=== PATIENT | male | born 1945 | race Caucasian/White ===

== ENCOUNTER 2019-03-07 12:56 | Inpatient (IN) | payer MEDICARE, OTHER ==
[~2019-03-07] VITALS: Ht 175.3 cm; Wt 67.8 kg
[~2019-03-07 12:56] MED LIST: CEFAZOLIN 1,000 MG ONE; FENTANYL PF 250 MCG/5ML ONE; GLYCOPYRROLATE 0.2MG/1ML, 5ML ONE; NEOSTIGMINE 1 MG/ML, 10ML ONE; PROPOFOL 10 MG/ML, 20ML ONE; ROCURONIUM 10MG/ML,5ML ONE
[2019-03-07] MEDS ORDERED: BUPIVACAINE/PF 0.5% ONE (13:15)
[2019-03-07] MEDS ORDERED: EPINEPHRINE 1 MG/ML, 1ML ONE (13:15)
[2019-03-07] MEDS ORDERED: LACTATED RINGERS 1,000 ML IV SCH (13:49)
[2019-03-07 13:53] VITALS: BP 193/98
[2019-03-07] MEDS ORDERED: GABAPENTIN 300 MG CAPSULE PO ONE (14:00)
[2019-03-07] MEDS ORDERED: ACETAMINOPHEN 500 MG TABLET PO ONE (14:00)
[2019-03-07] MEDS ORDERED: BUDE9TAB2 PO (14:06)
[2019-03-07] MEDS ORDERED: [UNRECOGNIZED DRUG - OTHER] PO (14:06)
[2019-03-07] MEDS ORDERED: CARV6.252 PO (14:06)
[2019-03-07] MEDS ORDERED: LOSA1TAB25 PO (14:06)
[2019-03-07] MEDS ORDERED: TAMS-11 PO (14:06)
[2019-03-07] MEDS ORDERED: PRAV20TA2 PO (14:06)
[2019-03-07] MEDS ORDERED: FENTANYL PF 100 MCG/2ML IV PRN (15:00)
[2019-03-07] MEDS ORDERED: ONDANSETRON 2MG/ML, 2ML IV PRN (15:00)
[2019-03-07] MEDS ORDERED: hydrALAzine 20 MG/ML, 1ML IV PRN (15:00)
[2019-03-07] MEDS ORDERED: MORPHINE SULFATE 4 MG/ML, 1ML IVPush PRN (15:00)
[2019-03-07] MEDS ORDERED: LABETALOL 5MG/ML, 20ML IV PRN (15:00)
[2019-03-07] MEDS ORDERED: MEPERIDINE/PF 25MG/ML,1ML IVPush PRN (15:00)
[2019-03-07] MEDS ORDERED: HYDROmorphone 2 MG/ML, 1ML IVPush PRN (15:00)
[2019-03-07] MEDS ORDERED: OXYcodone 5 MG/5 ML ORAL.SOL UDC PO PRN (15:00)
[2019-03-07] MEDS ORDERED: SUGAMMADEX 200 MG/2 ML IVPush ONE (15:50)
[2019-03-07] MEDS ORDERED: D5%-0.45NACL+KCL 20MEQ 1,000 ML IV SCH (15:55)
[2019-03-07] MEDS ORDERED: FENTANYL PF 100 MCG/2ML IVPush PRN (16:00)
[2019-03-07] MEDS ORDERED: CALCIUM CARBONATE 500 MG TAB.CHEW PO PRN (16:00)
[2019-03-07] MEDS ORDERED: DIPHENHYDRAMINE 50 MG/ML, 1ML IVPush PRN (16:00)
[2019-03-07] MEDS ORDERED: BUDESONIDE 9 MG PO PRN ×2 (16:00→19:48)
[2019-03-07] MEDS: IBUPROFEN 800 MG TABLET PO SCH ×2 (16:00→21:05)
[2019-03-07] MEDS ORDERED: OXYcodone IR 5MG TABLET PO PRN (16:00)
[2019-03-07] MEDS ORDERED: ONDANSETRON 2MG/ML, 2ML IVPush PRN (16:00)
[2019-03-07] MEDS ORDERED: TEMPLATE NON-FORMULARY MED. (Losartan/Hydrochlorothiazide** (Losartan-Hctz 100-12.5 Mg Tab PO SCH (16:00)
[2019-03-07] MEDS ORDERED: SCOPOLAMINE PATCH, 1.5MG PATCH.TD72 TD PRN (16:00)
[2019-03-07] MEDS ORDERED: FENTANYL PF 100 MCG/2ML ONE (16:06)
[2019-03-07] MEDS ORDERED: OXYcodone 5 MG/5 ML ORAL.SOL UDC ONE (16:07)
[2019-03-07] MEDS ORDERED: BUDESONIDE MC SCH (17:30)
[2019-03-07 19:21] VITALS: BP 159/80
[2019-03-07] MEDS: SODIUM CHLORIDE FLUSH 10ML SYR IVF SCH (21:00)
[2019-03-07] MEDS ORDERED: PRAVASTATIN 20 MG TABLET PO SCH (21:00)
[2019-03-07 23:57] VITALS: BP 165/91
[2019-03-08 03:40] VITALS: BP 167/76
[2019-03-08 07:33] VITALS: BP 180/87
[2019-03-08] MEDS: SODIUM CHLORIDE FLUSH 10ML SYR IVF SCH (07:45)
[2019-03-08] MEDS ORDERED: LOSARTAN 50MG TABLET PO SCH (09:00)
[2019-03-08] MEDS ORDERED: PSYLLIUM PACKET PO SCH (09:00)
[2019-03-08] MEDS ORDERED: HYDROCHLOROTHIAZIDE 12.5 MG CAPSULE PO SCH (09:00)
[2019-03-08] MEDS ORDERED: TAMSULOSIN 0.4 MG CAP.ER.24H PO SCH (09:00)
[2019-03-08] MEDS ORDERED: CARVEDILOL 6.25 MG TABLET PO SCH (09:00)
[2019-03-08 09:05] VITALS: BP 160/87
[2019-03-08] MEDS: IBUPROFEN 800 MG TABLET PO SCH (09:06)
[2019-03-08 10:40] VITALS: BP 152/74
[2019-03-08] MEDS ORDERED: OXYC5TAB3 PO (11:01)
== END 2019-03-08 11:31 | disposition home or self-care (01) | DRG 352 ==
LOC: OUT 12:56 → ORIP 16:35 → 4NE 17:05 → DCLOUNGE 03-08 11:15
PROVIDERS: ADMIT Surgery; ATTEND Surgery
PROC: 8E0W4CZ Robotic Assisted Procedure of Trunk Region, Percutaneous Endoscopic Approach (ICD-10-PCS; 2019-03-07)
PROC: 0YU54JZ Supplement Right Inguinal Region with Synthetic Substitute, Percutaneous Endoscopic Approach (ICD-10-PCS; principal; 2019-03-07 15:00)
DX: K40.90 Unilateral inguinal hernia, without obstruction or gangrene, not specified as recurrent (principal); I10 Essential (primary) hypertension; E78.5 Hyperlipidemia, unspecified; N40.0 Benign prostatic hyperplasia without lower urinary tract symptoms; Z82.49 Family history of ischemic heart disease and other diseases of the circulatory system
CPT/HCPCS: G0378; J0171; J0690; J2704; J2710; J3010; C1781; J3480; J7120

== ENCOUNTER 2019-03-11 10:39 | Inpatient (IN) | payer MEDICARE, OTHER ==
[~2019-03-11] VITALS: Ht 175.3 cm; Wt 73.9 kg
[~2019-03-11 10:39] MED LIST changes: +BUDE9TAB2 PO; +CARV6.252 PO; -CEFAZOLIN 1,000 MG ONE; -FENTANYL PF 250 MCG/5ML ONE; -GLYCOPYRROLATE 0.2MG/1ML, 5ML ONE; +LOSA1TAB25 PO; -NEOSTIGMINE 1 MG/ML, 10ML ONE; +OXYC5TAB3 PO; +PRAV20TA2 PO; -PROPOFOL 10 MG/ML, 20ML ONE; -ROCURONIUM 10MG/ML,5ML ONE; +TAMS-11 PO; +[UNRECOGNIZED DRUG - OTHER] PO
--- NOTE | 2019-03-11 10:59 | NUR ---
PT HAS CO OF NOT RECOVERING FROM INGUINAL RIGHT SIDE HERNIA SURGERY, LAPROSCOPIC. PT STATES HE HAS HAD HICCUPS SINCE SURGERY AND VOMITTING "DARK BLACK GRANULES" AT NIGHT. PT ALSO UNABLE TO KEEP FOOD DOWN AND HAS GOTTEN WEAKER. PT CONSULTED SURGEON ABOUT CONCERNS AND WAS TOLD TO COME TO ED. PT NOT IN DISTRESS. LAST BM WAS WEDNESDAY. DENIES PASSING GAS.
[2019-03-11] MEDS ORDERED: SODIUM CHLORIDE FLUSH 10ML SYR IVF ONE (11:30)
--- NOTE | 2019-03-11 11:53 | NUR ---
IV ESTABLISHED. LABS DRAWN. PT TO IMAGING. PT ATTEMPTED TO VOID. UNABLE TO PRODUCE UA.
[2019-03-11 12:05] LABS: BASOPHILS # (AUTO) 0.01 x10^3/uL (0-0.1); BASOPHILS % (AUTO) 0 % (0-1); EOSINOPHILS # (AUTO) 0.01 x10^3/uL (0-0.4); EOSINOPHILS % (AUTO) 0 % (1-7); LYMPHOCYTES # (AUTO) 0.83 x10^3/uL (1-3.4); LYMPHOCYTES % (AUTO) 7 % (22-44); MD NO; MEAN CORPUSCULAR HEMOGLOBIN 34.9 pg (27.5-34.5); MEAN CORPUSCULAR HGB CONC 34.1 g/dL (33.2-36.2); MEAN CORPUSCULAR VOLUME 102.6 fL (81-97); MEAN PLATELET VOLUME 9.1 fL (7.4-10.4); MONOCYTES % (AUTO) 7 % (2-9); NEUTROPHILS # (AUTO) 10.66 x10^3/uL (1.8-6.8); NEUTROPHILS % (AUTO) 87 % (42-75); PLATELET COUNT 141 x10^3/uL (130-400); RED BLOOD COUNT 3.89 x10^6/uL (4.38-5.82); RED CELL DISTRIBUTION WIDTH 14.3 % (9.4-14.8)
[2019-03-11] MEDS ORDERED: SODIUM CHLORIDE 0.9% 1,000 ML IV ONE (12:07)
[2019-03-11 12:08] LABS: INTERNATIONAL NORMALIZED RATIO 0.93 (0.93-1.1); PROTHROMBIN TIME 9.8 Seconds (9.6-11.5)
[2019-03-11] MEDS ORDERED: PANTOPRAZOLE 40 MG IV ONE (12:10)
[2019-03-11 12:16] LABS: ALANINE AMINOTRANSFERASE 22 U/L (12-78); ALBUMIN 3.5 g/dL (3.4-5.0); ANION GAP 10 mmol/L (5-15); CALCIUM 11.1 mg/dL (8.5-10.1); CHLORIDE 84 mmol/L (98-107); CREATININE 1.96 mg/dL (0.7-1.3)
[2019-03-11 12:18] LABS: ALKALINE PHOSPHATASE 57 U/L (45-117); BILIRUBIN,TOTAL 1.6 mg/dL (0.2-1.0); TOTAL PROTEIN 6.3 g/dL (6.4-8.2)
[2019-03-11] MEDS ORDERED: PANTOPRAZOLE 40 MG IV IVPush ONE (12:30)
--- NOTE | 2019-03-11 12:37 | NUR ---
MD AT BEDSIDE DISCUSSING POC. PT AGREES. NO FURTHER QUESTIONS. VS STABLE.
[2019-03-11] MEDS ORDERED: PANTOPRAZOLE 80 MG in SODIUM CHLORIDE 0.9% 100 ML IV SCH (13:00)
[2019-03-11] MEDS ORDERED: SODIUM CHLORIDE FLUSH 10ML SYR IVF PRN (13:00)
[2019-03-11] MEDS ORDERED: POTASSIUM CHLORIDE 40 MEQ in SODIUM CHLORIDE 0.9% 500 ML IV ONE ×2 (13:30→19:00)
--- NOTE | 2019-03-11 13:35 | NUR ---
REPORT TO ADENIKE
[2019-03-11] MEDS ORDERED: SODIUM CHLORIDE 0.9% 1,000ML IVBOLUS ONE (14:00)
[2019-03-11] MEDS ORDERED: morphine SULFATE 10 MG/ML, 1ML IVPush PRN (14:30)
[2019-03-11] MEDS ORDERED: ONDANSETRON 2MG/ML, 2ML IVPush PRN (14:30)
[2019-03-11] MEDS ORDERED: ENALAPRILAT 1.25 MG/ML, 2ML IVPush PRN (14:30)
[2019-03-11] MEDS ORDERED: LABETALOL 5MG/ML, 20ML IVPush PRN (14:30)
[2019-03-11] MEDS ORDERED: hydrALAzine 20 MG/ML, 1ML IVPush PRN (14:30)
[2019-03-11] MEDS: NS + 40MEQ KCL 1,000 ML IV SCH ×2 (15:59→23:00)
[2019-03-11 16:11] LABS: ANION GAP 9 mmol/L (5-15); CALCIUM 9.7 mg/dL (8.5-10.1); CHLORIDE 90 mmol/L (98-107); CREATININE 1.45 mg/dL (0.7-1.3)
[2019-03-11] MEDS ORDERED: METOCLOPRAMIDE 5 MG/ML, 2ML IVPush ONE (16:30)
[2019-03-11 16:33] LABS: BASOPHILS # (AUTO) 0.01 x10^3/uL (0-0.1); BASOPHILS % (AUTO) 0 % (0-1); EOSINOPHILS % (AUTO) 1 % (1-7); LYMPHOCYTES # (AUTO) 0.68 x10^3/uL (1-3.4); LYMPHOCYTES % (AUTO) 8 % (22-44); MD SCAN; MEAN CORPUSCULAR HEMOGLOBIN 34.9 pg (27.5-34.5); MEAN CORPUSCULAR HGB CONC 33.8 g/dL (33.2-36.2); MEAN CORPUSCULAR VOLUME 103.2 fL (81-97); MEAN PLATELET VOLUME 8.8 fL (7.4-10.4); MONOCYTES # (AUTO) 0.43 x10^3/uL (0.2-0.8); MONOCYTES % (AUTO) 5 % (2-9); NEUTROPHILS # (AUTO) 6.94 x10^3/uL (1.8-6.8); NEUTROPHILS % (AUTO) 85 % (42-75); PLATELET COUNT 123 x10^3/uL (130-400); RED BLOOD COUNT 3.62 x10^6/uL (4.38-5.82); RED CELL DISTRIBUTION WIDTH 14.6 % (9.4-14.8)
[2019-03-11 20:33] VITALS: BP 122/76
[2019-03-11] MEDS: PANTOPRAZOLE 80 MG in SODIUM CHLORIDE 0.9% 100 ML IV SCH (23:14)
[2019-03-12 01:31] LABS: MICROSCOPIC NOT IND
[2019-03-12 01:48] LABS: CULTURE INDICATED? NO
[2019-03-12 02:38] VITALS: BP 104/69
[2019-03-12] MEDS: NS + 40MEQ KCL 1,000 ML IV SCH ×3 (04:07→23:27)
[2019-03-12 05:30] LABS: BASOPHILS # (AUTO) 0.02 x10^3/uL (0-0.1); BASOPHILS % (AUTO) 0 % (0-1); EOSINOPHILS # (AUTO) 0.17 x10^3/uL (0-0.4); EOSINOPHILS % (AUTO) 3 % (1-7); LYMPHOCYTES # (AUTO) 0.61 x10^3/uL (1-3.4); LYMPHOCYTES % (AUTO) 11 % (22-44); MD NO; MEAN CORPUSCULAR HEMOGLOBIN 35.3 pg (27.5-34.5); MEAN CORPUSCULAR HGB CONC 34.4 g/dL (33.2-36.2); MEAN CORPUSCULAR VOLUME 102.7 fL (81-97); MEAN PLATELET VOLUME 9.3 fL (7.4-10.4); MONOCYTES # (AUTO) 0.44 x10^3/uL (0.2-0.8); MONOCYTES % (AUTO) 8 % (2-9); NEUTROPHILS # (AUTO) 4.35 x10^3/uL (1.8-6.8); NEUTROPHILS % (AUTO) 78 % (42-75); PLATELET COUNT 103 x10^3/uL (130-400); RED CELL DISTRIBUTION WIDTH 14.7 % (9.4-14.8)
[2019-03-12 05:38] LABS: ANION GAP 7 mmol/L (5-15); CALCIUM 8.9 mg/dL (8.5-10.1); CHLORIDE 101 mmol/L (98-107); CREATININE 0.91 mg/dL (0.7-1.3)
[2019-03-12 07:10] VITALS: BP 132/75
[2019-03-12] MEDS: TAMSULOSIN 0.4 MG CAP.ER.24H PO SCH (09:00)
[2019-03-12] MEDS: PANTOPRAZOLE 80 MG in SODIUM CHLORIDE 0.9% 100 ML IV SCH ×2 (10:08→23:27)
[2019-03-12] MEDS ORDERED: PANTOPRAZOLE 80 MG in SODIUM CHLORIDE 0.9% 100 ML IV SCH (13:00)
[2019-03-12 13:28] VITALS: BP 137/78
[2019-03-12 20:34] VITALS: BP 149/76
[2019-03-12] MEDS ORDERED: OMNIPAQUE 350 MG/ML, 150 ML BOTTLE ONE (22:25)
[2019-03-13 01:34] VITALS: BP 159/84
[2019-03-13 07:16] VITALS: BP 163/83
[2019-03-13] MEDS: TAMSULOSIN 0.4 MG CAP.ER.24H PO SCH (09:00)
[2019-03-13 09:02] LABS: BASOPHILS # (AUTO) 0.03 x10^3/uL (0-0.1); BASOPHILS % (AUTO) 0 % (0-1); EOSINOPHILS # (AUTO) 0.01 x10^3/uL (0-0.4); EOSINOPHILS % (AUTO) 0 % (1-7); LYMPHOCYTES # (AUTO) 0.34 x10^3/uL (1-3.4); LYMPHOCYTES % (AUTO) 5 % (22-44); MD NO; MEAN CORPUSCULAR HEMOGLOBIN 34.4 pg (27.5-34.5); MEAN CORPUSCULAR HGB CONC 34.1 g/dL (33.2-36.2); MEAN CORPUSCULAR VOLUME 100.9 fL (81-97); MEAN PLATELET VOLUME 8.3 fL (7.4-10.4); MONOCYTES # (AUTO) 0.39 x10^3/uL (0.2-0.8); MONOCYTES % (AUTO) 5 % (2-9); NEUTROPHILS # (AUTO) 6.67 x10^3/uL (1.8-6.8); NEUTROPHILS % (AUTO) 90 % (42-75); PLATELET COUNT 127 x10^3/uL (130-400); RED BLOOD COUNT 3.32 x10^6/uL (4.38-5.82); RED CELL DISTRIBUTION WIDTH 14.4 % (9.4-14.8)
[2019-03-13 09:10] LABS: ALANINE AMINOTRANSFERASE 18 U/L (12-78); ANION GAP 10 mmol/L (5-15); CALCIUM 8.9 mg/dL (8.5-10.1); CHLORIDE 113 mmol/L (98-107)
[2019-03-13 09:13] LABS: ALKALINE PHOSPHATASE 50 U/L (45-117); BILIRUBIN,TOTAL 1.2 mg/dL (0.2-1.0); TOTAL PROTEIN 5.3 g/dL (6.4-8.2)
[2019-03-13] MEDS: NS + 40MEQ KCL 1,000 ML IV SCH (11:22)
[2019-03-13] MEDS: PANTOPRAZOLE 80 MG in SODIUM CHLORIDE 0.9% 100 ML IV SCH ×2 (11:22→21:43)
[2019-03-13 13:06] VITALS: BP 144/78
[2019-03-13 19:30] VITALS: BP 129/83
[2019-03-14] MEDS: NS + 40MEQ KCL 1,000 ML IV SCH ×2 (00:30→14:23)
[2019-03-14 01:22] VITALS: BP 145/81
[2019-03-14 07:22] VITALS: BP 145/87
[2019-03-14] MEDS: TAMSULOSIN 0.4 MG CAP.ER.24H PO SCH (08:04)
[2019-03-14] MEDS: PANTOPRAZOLE 80 MG in SODIUM CHLORIDE 0.9% 100 ML IV SCH ×2 (09:17→18:35)
[2019-03-14 13:34] VITALS: BP 165/87
[2019-03-14 18:42] VITALS: BP 157/82
[2019-03-15] MEDS: NS + 40MEQ KCL 1,000 ML IV SCH ×2 (04:01→14:38)
[2019-03-15] MEDS: PANTOPRAZOLE 80 MG in SODIUM CHLORIDE 0.9% 100 ML IV SCH ×2 (04:01→14:38)
[2019-03-15 04:24] VITALS: BP 159/85
[2019-03-15 07:14] VITALS: BP 165/88
[2019-03-15] MEDS: TAMSULOSIN 0.4 MG CAP.ER.24H PO SCH (08:36)
[2019-03-15 13:16] VITALS: BP 165/92
[2019-03-15 20:27] VITALS: BP 156/90
[2019-03-15] MEDS: CALCIUM CARBONATE 500 MG TAB.CHEW PO PRN (20:50)
[2019-03-16] MEDS: CALCIUM CARBONATE 500 MG TAB.CHEW PO PRN ×2 (00:25→02:27)
[2019-03-16] MEDS: PANTOPRAZOLE 80 MG in SODIUM CHLORIDE 0.9% 100 ML IV SCH ×3 (00:46→21:15)
[2019-03-16 00:54] VITALS: BP 162/85
[2019-03-16] MEDS: NS + 40MEQ KCL 1,000 ML IV SCH ×2 (03:59→19:07)
[2019-03-16 08:25] VITALS: BP 148/83
[2019-03-16] MEDS: TAMSULOSIN 0.4 MG CAP.ER.24H PO SCH (08:57)
[2019-03-16 13:01] VITALS: BP 149/89
[2019-03-16] MEDS ORDERED: FENTANYL PF 250 MCG/5ML ONE (14:29)
[2019-03-16] MEDS ORDERED: MIDAZOLAM 1 MG/ML, 2ML ONE (14:29)
[2019-03-16] MEDS ORDERED: ROCURONIUM 10MG/ML,5ML ONE (14:37)
[2019-03-16] MEDS ORDERED: PROPOFOL 10 MG/ML, 20ML ONE (14:37)
[2019-03-16] MEDS ORDERED: SUCCINYLCHOLINE 20 MG/ML, 10ML ONE (14:37)
[2019-03-16] MEDS ORDERED: DEXAMETHASONE 4 MG/ML, 1ML ONE ×2 (14:37)
[2019-03-16] MEDS ORDERED: ALBUTEROL SULFATE 200 PUFFS/8.5 GR INH ONE (14:39)
[2019-03-16] MEDS ORDERED: CEFOTETAN 2 GM ONE (14:39)
[2019-03-16] MEDS ORDERED: PIPERACILLIN/TAZO/PMX 3.375GM 50 ML ONE (14:58)
[2019-03-16] MEDS ORDERED: ONDANSETRON 2MG/ML, 2ML ONE (15:29)
[2019-03-16] MEDS ORDERED: SUGAMMADEX 200 MG/2 ML IVPush ONE (15:29)
[2019-03-16] MEDS ORDERED: ALBUTEROL SULFATE 2.5 MG/3 ML NPPB PRN (16:00)
[2019-03-16] MEDS ORDERED: HYDROmorphone 2 MG/ML, 1ML IVPush PRN (16:00)
[2019-03-16] MEDS ORDERED: hydrALAzine 20 MG/ML, 1ML IV PRN (16:00)
[2019-03-16] MEDS ORDERED: LABETALOL 5MG/ML, 20ML IV PRN (16:00)
[2019-03-16] MEDS ORDERED: MEPERIDINE/PF 25MG/ML,1ML IVPush PRN (16:00)
[2019-03-16] MEDS ORDERED: PROMETHAZINE 12.5 MG SUPP PR PRN (16:00)
[2019-03-16] MEDS ORDERED: ACETAMINOPHEN 325 MG TABLET PO PRN (16:00)
[2019-03-16] MEDS ORDERED: ONDANSETRON 2MG/ML, 2ML IV PRN (16:00)
[2019-03-16] MEDS ORDERED: OXYcodone 5 MG/5 ML ORAL.SOL UDC PO PRN (16:00)
[2019-03-16] MEDS ORDERED: EPHEDRINE 50 MG/ML, 1ML IVPush PRN (16:00)
[2019-03-16] MEDS ORDERED: PROMETHAZINE 25 MG/ML, 1ML IV PRN (16:00)
[2019-03-16] MEDS ORDERED: HALOPERIDOL 5 MG/ML IV PRN (16:00)
[2019-03-16] MEDS ORDERED: ONDANSETRON ODT 8 MG PO PRN (16:00)
[2019-03-16] MEDS ORDERED: DIAZEPAM 5 MG/ML, 2ML IVPush PRN (16:00)
[2019-03-16] MEDS ORDERED: MIDAZOLAM 1 MG/ML, 2ML IV PRN (16:00)
[2019-03-16] MEDS ORDERED: FENTANYL PF 100 MCG/2ML ONE (17:02)
[2019-03-16] MEDS: FENTANYL PF 100 MCG/2ML IV PRN ×2 (17:10→17:21)
[2019-03-16] MEDS: ALBUTEROL/IPRATROPIUM 2.5MG/0.5MG, 3 ML NPPB SCH ×2 (19:00→23:00)
[2019-03-16] MEDS: PIPERACILLIN/TAZO/PMX 3.375GM 50 ML IV SCH (19:07)
[2019-03-16 20:00] VITALS: BP 98/76
[2019-03-17] MEDS: PIPERACILLIN/TAZO/PMX 3.375GM 50 ML IV SCH ×4 (00:13→17:45)
[2019-03-17] MEDS: ALBUTEROL/IPRATROPIUM 2.5MG/0.5MG, 3 ML NPPB SCH ×2 (03:03→07:00)
[2019-03-17 04:00] VITALS: BP 102/62
[2019-03-17 05:18] LABS: MEAN CORPUSCULAR HGB CONC 34.2 g/dL (33.2-36.2); MEAN CORPUSCULAR VOLUME 102.3 fL (81-97); MEAN PLATELET VOLUME 8.4 fL (7.4-10.4); PLATELET COUNT 136 x10^3/uL (130-400); RED BLOOD COUNT 3.09 x10^6/uL (4.38-5.82); RED CELL DISTRIBUTION WIDTH 14.2 % (9.4-14.8)
[2019-03-17 05:22] LABS: ALANINE AMINOTRANSFERASE 20 U/L (12-78); ALBUMIN 2.1 g/dL (3.4-5.0); ANION GAP 9 mmol/L (5-15); CALCIUM 7.7 mg/dL (8.5-10.1); CHLORIDE 111 mmol/L (98-107); CREATININE 1.22 mg/dL (0.7-1.3)
[2019-03-17 05:25] LABS: ALKALINE PHOSPHATASE 35 U/L (45-117); TOTAL PROTEIN 4.5 g/dL (6.4-8.2)
[2019-03-17 05:56] LABS: MD YES
[2019-03-17 05:57] LABS: BAND#(MANUAL) 7.32 x10^3/uL; BANDS%(MANUAL) 60 % (0-7); LYMPH#(MANUAL) 0.12 x10^3/uL (1-3.4); LYMPHS% (MANUAL) 1 % (22-44); METAMYELOCYTES# (MANUAL) 0.37 x10^3/uL (0-0); METAMYELOCYTES% (MANUAL) 3 % (0-1); MONOS#(MANUAL) 0.37 x10^3/uL (0.3-2.7); MONOS% (MANUAL) 3 % (2-9); SEG#(MANUAL) 4.03 x10^3/uL (1.8-6.8); SEGS% (MANUAL) 33 % (42-75); TOXIC GRAN 1+
[2019-03-17 05:58] LABS: <PLATELET ESTIMATE> ADEQUATE; ANISOCYTOSIS 1+; PMNS WITH VACUOLES 1+
[2019-03-17 05:59] LABS: <PLT MORPHOLOGY> NORMAL PLT MORPH
[2019-03-17] MEDS: PANTOPRAZOLE 80 MG in SODIUM CHLORIDE 0.9% 100 ML IV SCH ×2 (06:10→16:36)
[2019-03-17] MEDS ORDERED: SODIUM CHLORIDE 0.9% 1,000 ML IV SCH (10:00)
[2019-03-17] MEDS: TAMSULOSIN 0.4 MG CAP.ER.24H PO SCH (10:55)
[2019-03-17] MEDS: SODIUM CHLORIDE 0.9% 1,000 ML IV SCH ×2 (10:56→21:06)
[2019-03-17 16:29] VITALS: BP 103/62
[2019-03-17 19:19] VITALS: BP 91/61
[2019-03-18 00:08] VITALS: BP 103/63
[2019-03-18] MEDS: PIPERACILLIN/TAZO/PMX 3.375GM 50 ML IV SCH ×4 (00:32→18:05)
[2019-03-18] MEDS: PANTOPRAZOLE 80 MG in SODIUM CHLORIDE 0.9% 100 ML IV SCH (03:10)
[2019-03-18 04:03] VITALS: BP 112/69
[2019-03-18 05:36] LABS: BASOPHILS % (AUTO) 0 % (0-1); EOSINOPHILS # (AUTO) 0.06 x10^3/uL (0-0.4); EOSINOPHILS % (AUTO) 1 % (1-7); LYMPHOCYTES # (AUTO) 0.39 x10^3/uL (1-3.4); LYMPHOCYTES % (AUTO) 4 % (22-44); MD NO; MEAN CORPUSCULAR HEMOGLOBIN 35.1 pg (27.5-34.5); MEAN PLATELET VOLUME 8.6 fL (7.4-10.4); MONOCYTES # (AUTO) 0.18 x10^3/uL (0.2-0.8); MONOCYTES % (AUTO) 2 % (2-9); NEUTROPHILS # (AUTO) 9.45 x10^3/uL (1.8-6.8); NEUTROPHILS % (AUTO) 94 % (42-75); PLATELET COUNT 129 x10^3/uL (130-400); RED BLOOD COUNT 2.75 x10^6/uL (4.38-5.82); RED CELL DISTRIBUTION WIDTH 14.4 % (9.4-14.8)
[2019-03-18 05:46] LABS: CHLORIDE 109 mmol/L (98-107)
[2019-03-18 05:58] LABS: ALANINE AMINOTRANSFERASE 19 U/L (12-78); ALKALINE PHOSPHATASE 47 U/L (45-117); ANION GAP 7 mmol/L (5-15); BILIRUBIN,TOTAL 1.3 mg/dL (0.2-1.0); CALCIUM 7.8 mg/dL (8.5-10.1); CREATININE 0.98 mg/dL (0.7-1.3); TOTAL PROTEIN 4.7 g/dL (6.4-8.2)
[2019-03-18] MEDS: SODIUM CHLORIDE 0.9% 1,000 ML IV SCH ×2 (06:26→18:05)
[2019-03-18 08:10] VITALS: BP 124/77
[2019-03-18] MEDS ORDERED: POTASSIUM CHLORIDE 20 MEQ in SODIUM CHLORIDE 0.9% 250 ML IV ONE (08:30)
[2019-03-18] MEDS: MULTIVITS,STRESS FORMULA 1 TABLET PO SCH (09:04)
[2019-03-18] MEDS: PANTOPRAZOLE 20MG TABLET PO SCH ×2 (09:04→20:35)
[2019-03-18] MEDS: TAMSULOSIN 0.4 MG CAP.ER.24H PO SCH (09:04)
[2019-03-18] MEDS: CALCIUM CARBONATE 500 MG TAB.CHEW PO SCH ×2 (09:05→20:35)
[2019-03-18] MEDS: SODIUM CHLORIDE FLUSH 10ML SYR IVF SCH ×2 (09:12→21:00)
[2019-03-18 13:38] VITALS: BP 112/61
[2019-03-18] MEDS ORDERED: CHOLECALCIFEROL 400 UNITS/ML ORAL SOL PO SCH (16:30)
[2019-03-18] MEDS: ASCORBIC ACID 500 MG TABLET PO SCH (18:05)
[2019-03-18] MEDS: CHOLECALCIFEROL 400 UNITS TABLET PO SCH (18:44)
[2019-03-18 19:27] VITALS: BP 134/79
[2019-03-19] MEDS: PIPERACILLIN/TAZO/PMX 3.375GM 50 ML IV SCH ×5 (00:23→23:52)
[2019-03-19 00:55] VITALS: BP 128/69
[2019-03-19 05:34] LABS: MEAN CORPUSCULAR HEMOGLOBIN 34.5 pg (27.5-34.5); MEAN CORPUSCULAR HGB CONC 33.7 g/dL (33.2-36.2); MEAN CORPUSCULAR VOLUME 102.2 fL (81-97); MEAN PLATELET VOLUME 8.5 fL (7.4-10.4); PLATELET COUNT 149 x10^3/uL (130-400); RED BLOOD COUNT 2.68 x10^6/uL (4.38-5.82); RED CELL DISTRIBUTION WIDTH 14.3 % (9.4-14.8)
[2019-03-19 05:41] LABS: ALBUMIN 1.8 g/dL (3.4-5.0); ANION GAP 6 mmol/L (5-15); CALCIUM 7.7 mg/dL (8.5-10.1); CHLORIDE 109 mmol/L (98-107)
[2019-03-19 05:42] LABS: CREATININE 0.85 mg/dL (0.7-1.3)
[2019-03-19] MEDS: SODIUM CHLORIDE 0.9% 1,000 ML IV SCH ×3 (06:05→23:53)
[2019-03-19 06:12] LABS: BASOPHILS % (AUTO) 0 % (0-1); EOSINOPHILS # (AUTO) 0.01 x10^3/uL (0-0.4); EOSINOPHILS % (AUTO) 0 % (1-7); LYMPHOCYTES # (AUTO) 0.48 x10^3/uL (1-3.4); LYMPHOCYTES % (AUTO) 4 % (22-44); MD SCAN; MONOCYTES # (AUTO) 0.31 x10^3/uL (0.2-0.8); MONOCYTES % (AUTO) 3 % (2-9); NEUTROPHILS # (AUTO) 11.54 x10^3/uL (1.8-6.8); NEUTROPHILS % (AUTO) 94 % (42-75)
[2019-03-19 07:30] VITALS: BP 122/76
[2019-03-19] MEDS: ASCORBIC ACID 500 MG TABLET PO SCH ×2 (07:40→16:23)
[2019-03-19] MEDS: CALCIUM CARBONATE 500 MG TAB.CHEW PO SCH ×2 (07:40→21:48)
[2019-03-19] MEDS: PANTOPRAZOLE 20MG TABLET PO SCH ×2 (07:40→21:48)
[2019-03-19] MEDS: TAMSULOSIN 0.4 MG CAP.ER.24H PO SCH (07:40)
[2019-03-19] MEDS: MULTIVITS,STRESS FORMULA 1 TABLET PO SCH (07:40)
[2019-03-19] MEDS: SODIUM CHLORIDE FLUSH 10ML SYR IVF SCH ×2 (07:41→21:49)
[2019-03-19] MEDS ORDERED: POTASSIUM CHLORIDE 20 MEQ in SODIUM CHLORIDE 0.9% 250 ML IV ONE (08:00)
[2019-03-19] MEDS ORDERED: MAGNESIUM SULFATE PMX 2GM/50ML 50 ML IV ONE (08:00)
[2019-03-19] MEDS ORDERED: POTASSIUM PHOSPHATE 44 MEQ in SODIUM CHLORIDE 0.9% 500 ML IV ONE (10:00)
[2019-03-19 14:26] VITALS: BP 135/78
[2019-03-19] MEDS: CHOLECALCIFEROL 400 UNITS TABLET PO SCH (16:23)
[2019-03-19 19:02] VITALS: BP 146/76
[2019-03-20 03:52] VITALS: BP 123/71
[2019-03-20] MEDS: PIPERACILLIN/TAZO/PMX 3.375GM 50 ML IV SCH ×4 (05:50→23:49)
[2019-03-20 05:59] LABS: ALBUMIN 1.9 g/dL (3.4-5.0); ANION GAP 9 mmol/L (5-15); CALCIUM 7.7 mg/dL (8.5-10.1); CHLORIDE 109 mmol/L (98-107); CREATININE 0.81 mg/dL (0.7-1.3)
[2019-03-20 06:25] LABS: MEAN CORPUSCULAR HEMOGLOBIN 34.4 pg (27.5-34.5); MEAN CORPUSCULAR VOLUME 101.2 fL (81-97); MEAN PLATELET VOLUME 8.6 fL (7.4-10.4); PLATELET COUNT 177 x10^3/uL (130-400); RED BLOOD COUNT 2.84 x10^6/uL (4.38-5.82)
[2019-03-20 06:43] VITALS: BP 144/87
[2019-03-20 06:59] LABS: BASOPHILS % (AUTO) 0 % (0-1); EOSINOPHILS # (AUTO) 0.13 x10^3/uL (0-0.4); EOSINOPHILS % (AUTO) 1 % (1-7); LYMPHOCYTES # (AUTO) 0.49 x10^3/uL (1-3.4); LYMPHOCYTES % (AUTO) 4 % (22-44); MD SCAN; MONOCYTES # (AUTO) 0.56 x10^3/uL (0.2-0.8); MONOCYTES % (AUTO) 5 % (2-9); NEUTROPHILS # (AUTO) 11.22 x10^3/uL (1.8-6.8); NEUTROPHILS % (AUTO) 91 % (42-75)
[2019-03-20] MEDS ORDERED: PSYLLIUM PACKET ONE (08:54)
[2019-03-20] MEDS: SODIUM CHLORIDE FLUSH 10ML SYR IVF SCH ×2 (09:00→21:25)
[2019-03-20] MEDS: CALCIUM CARBONATE 500 MG TAB.CHEW PO SCH ×2 (09:02→21:25)
[2019-03-20] MEDS: PSYLLIUM PACKET PO SCH (09:02)
[2019-03-20] MEDS: TAMSULOSIN 0.4 MG CAP.ER.24H PO SCH (09:02)
[2019-03-20] MEDS: MULTIVITS,STRESS FORMULA 1 TABLET PO SCH (09:02)
[2019-03-20] MEDS: ASCORBIC ACID 500 MG TABLET PO SCH ×2 (09:03→17:25)
[2019-03-20] MEDS: SODIUM CHLORIDE 0.9% 1,000 ML IV SCH (09:03)
[2019-03-20] MEDS: PANTOPRAZOLE 20MG TABLET PO SCH ×2 (09:03→21:25)
[2019-03-20 11:29] LABS: CLOSTRIDIUM DIFFICILE ANTIGEN NEGATIVE; CLOSTRIDIUM DIFFICILE TOXIN NEGATIVE (Negative)
[2019-03-20 13:51] VITALS: BP 136/86
[2019-03-20] MEDS ORDERED: POTASSIUM CHLORIDE 20 MEQ in SODIUM CHLORIDE 0.9% 250 ML IV ONE (16:00)
[2019-03-20] MEDS ORDERED: MAGNESIUM SULFATE PMX 2GM/50ML 50 ML IV ONE (16:00)
[2019-03-20] MEDS ORDERED: CALCIUM GLUCONATE 4.6 MEQ in SODIUM CHLORIDE 0.9% 50 ML IV ONE (16:00)
[2019-03-20] MEDS: CHOLECALCIFEROL 400 UNITS TABLET PO SCH (17:25)
[2019-03-20] MEDS ORDERED: DIPHENOXYLATE/ATROPINE TABLET ONE (17:36)
[2019-03-20] MEDS ORDERED: DIPHENOXYLATE/ATROPINE TABLET PO PRN ×2 (18:00)
[2019-03-20 19:30] VITALS: BP 136/75
[2019-03-21 03:40] VITALS: BP 116/73
[2019-03-21 06:04] LABS: BASOPHILS # (AUTO) 0.01 x10^3/uL (0-0.1); BASOPHILS % (AUTO) 0 % (0-1); EOSINOPHILS # (AUTO) 0.21 x10^3/uL (0-0.4); EOSINOPHILS % (AUTO) 3 % (1-7); LYMPHOCYTES # (AUTO) 0.48 x10^3/uL (1-3.4); LYMPHOCYTES % (AUTO) 6 % (22-44); MD NO; MEAN CORPUSCULAR HEMOGLOBIN 34.3 pg (27.5-34.5); MEAN CORPUSCULAR HGB CONC 33.6 g/dL (33.2-36.2); MEAN CORPUSCULAR VOLUME 101.9 fL (81-97); MEAN PLATELET VOLUME 8.1 fL (7.4-10.4); MONOCYTES # (AUTO) 0.41 x10^3/uL (0.2-0.8); MONOCYTES % (AUTO) 5 % (2-9); NEUTROPHILS # (AUTO) 6.59 x10^3/uL (1.8-6.8); NEUTROPHILS % (AUTO) 86 % (42-75); PLATELET COUNT 167 x10^3/uL (130-400); RED BLOOD COUNT 2.57 x10^6/uL (4.38-5.82); RED CELL DISTRIBUTION WIDTH 14.1 % (9.4-14.8)
[2019-03-21 06:10] LABS: CHLORIDE 110 mmol/L (98-107)
[2019-03-21] MEDS: PIPERACILLIN/TAZO/PMX 3.375GM 50 ML IV SCH ×3 (06:13→17:27)
[2019-03-21 06:15] LABS: ALBUMIN 1.8 g/dL (3.4-5.0); ANION GAP 8 mmol/L (5-15); CALCIUM 7.7 mg/dL (8.5-10.1); CREATININE 0.74 mg/dL (0.7-1.3)
[2019-03-21 06:46] VITALS: BP 133/81
[2019-03-21] MEDS ORDERED: POTASSIUM CHLORIDE 20 MEQ in SODIUM CHLORIDE 0.9% 250 ML IV ONE (07:30)
[2019-03-21] MEDS ORDERED: CALCIUM GLUCONATE 4.6 MEQ in SODIUM CHLORIDE 0.9% 50 ML IV ONE (07:30)
[2019-03-21] MEDS: TAMSULOSIN 0.4 MG CAP.ER.24H PO SCH (08:26)
[2019-03-21] MEDS: PANTOPRAZOLE 20MG TABLET PO SCH ×2 (08:26→20:10)
[2019-03-21] MEDS: CALCIUM CARBONATE 500 MG TAB.CHEW PO SCH ×2 (08:26→20:10)
[2019-03-21] MEDS: ASCORBIC ACID 500 MG TABLET PO SCH ×2 (08:26→17:27)
[2019-03-21] MEDS: MULTIVITS,STRESS FORMULA 1 TABLET PO SCH (08:26)
[2019-03-21] MEDS: SODIUM CHLORIDE FLUSH 10ML SYR IVF SCH ×2 (08:27→20:10)
[2019-03-21] MEDS: PSYLLIUM PACKET PO SCH (09:00)
[2019-03-21] MEDS ORDERED: POTASSIUM PHOSPHATE 44 MEQ in SODIUM CHLORIDE 0.9% 500 ML IV ONE (10:00)
[2019-03-21] MEDS: CHOLECALCIFEROL 400 UNITS TABLET PO SCH (17:27)
[2019-03-21] MEDS: SODIUM CHLORIDE 0.9% 1,000 ML IV SCH (17:28)
[2019-03-21 19:53] VITALS: BP 125/87
[2019-03-22] MEDS: PIPERACILLIN/TAZO/PMX 3.375GM 50 ML IV SCH ×3 (00:59→12:00)
[2019-03-22 03:12] VITALS: BP 158/80
[2019-03-22 05:57] LABS: BASOPHILS # (AUTO) 0.01 x10^3/uL (0-0.1); BASOPHILS % (AUTO) 0 % (0-1); EOSINOPHILS # (AUTO) 0.07 x10^3/uL (0-0.4); EOSINOPHILS % (AUTO) 2 % (1-7); LYMPHOCYTES # (AUTO) 0.43 x10^3/uL (1-3.4); LYMPHOCYTES % (AUTO) 9 % (22-44); MD NO; MEAN CORPUSCULAR HEMOGLOBIN 33.7 pg (27.5-34.5); MEAN CORPUSCULAR HGB CONC 33.9 g/dL (33.2-36.2); MEAN CORPUSCULAR VOLUME 99.4 fL (81-97); MEAN PLATELET VOLUME 7.6 fL (7.4-10.4); MONOCYTES # (AUTO) 0.33 x10^3/uL (0.2-0.8); MONOCYTES % (AUTO) 7 % (2-9); NEUTROPHILS # (AUTO) 3.91 x10^3/uL (1.8-6.8); NEUTROPHILS % (AUTO) 82 % (42-75); PLATELET COUNT 172 x10^3/uL (130-400); RED BLOOD COUNT 2.63 x10^6/uL (4.38-5.82); RED CELL DISTRIBUTION WIDTH 14.3 % (9.4-14.8)
[2019-03-22 05:58] LABS: ALBUMIN 1.8 g/dL (3.4-5.0); ANION GAP 7 mmol/L (5-15); CHLORIDE 110 mmol/L (98-107); CREATININE 0.75 mg/dL (0.7-1.3)
[2019-03-22] MEDS: PSYLLIUM PACKET PO SCH (07:46)
[2019-03-22] MEDS: MULTIVITS,STRESS FORMULA 1 TABLET PO SCH (08:51)
[2019-03-22] MEDS: TAMSULOSIN 0.4 MG CAP.ER.24H PO SCH (08:51)
[2019-03-22] MEDS: CALCIUM CARBONATE 500 MG TAB.CHEW PO SCH (08:52)
[2019-03-22] MEDS: ASCORBIC ACID 500 MG TABLET PO SCH (08:52)
[2019-03-22] MEDS: SODIUM CHLORIDE FLUSH 10ML SYR IVF SCH (08:52)
[2019-03-22] MEDS: PANTOPRAZOLE 20MG TABLET PO SCH (08:52)
[2019-03-22 08:55] VITALS: BP 163/81
[2019-03-22] MEDS ORDERED: CALC200T24 PO (11:33)
[2019-03-22] MEDS ORDERED: ASCO500T6 PO (11:33)
[2019-03-22] MEDS ORDERED: CHOL400T2 PO (11:33)
[2019-03-22] MEDS ORDERED: POTA20TA14 PO (11:33)
[2019-03-22] MEDS ORDERED: MULT1TAB76 PO (11:33)
== END 2019-03-22 13:20 | disposition home or self-care (01) | DRG 329 ==
LOC: ED 12:45 → EDIP 12:59 → 4NE 13:54 → CCU 03-16 17:38 → 4NE 03-17 16:00 → 4EST 03-21 21:19
PROVIDERS: ADMIT Emergency Medicine; ATTEND Family Medicine
PROC: 0DB80ZZ Excision of Small Intestine, Open Approach (ICD-10-PCS; principal; 2019-03-16 14:30)
DX: K56.52 Intestinal adhesions [bands] with complete obstruction (principal); N17.0 Acute kidney failure with tubular necrosis; G93.41 Metabolic encephalopathy; J69.0 Pneumonitis due to inhalation of food and vomit; J96.01 Acute respiratory failure with hypoxia; E87.1 Hypo-osmolality and hyponatremia; C85.90 Non-Hodgkin lymphoma, unspecified, unspecified site; K92.0 Hematemesis; D64.9 Anemia, unspecified; E78.5 Hyperlipidemia, unspecified; E86.0 Dehydration; E87.6 Hypokalemia; E87.8 Other disorders of electrolyte and fluid balance, not elsewhere classified; I10 Essential (primary) hypertension; N40.0 Benign prostatic hyperplasia without lower urinary tract symptoms
CPT/HCPCS: 36415; 36600; 71045; 74018; 74022; 74245; 80048; 80053; 80069; 81003; 82803; 83605; 83690; 83735; 84100; 84145; 84443; 85025; 85610; 85730; 87081; 87324; 88307; 93005; 94640; 96374; 96375; G0378; J0610; J1100; J2250; J2405; J2543; J2704; J3010; J3480; J7620; Q9967; C9113; J0330; J2765; J3475; J3490; J7030; J7040; J7050